=== PATIENT | male | born 1990 | race Caucasian/White ===

== ENCOUNTER 2017-08-11 12:35 | Emergency (ER) ==
[2017-08-11 12:46] VITALS: BP 118/75; TEMP 98.1; BMI 22.3
[2017-08-11] MEDS ORDERED: ROCEPHIN 2 GM in SODIUM CHLORIDE 50 ML IV STA (12:51)
--- NOTE | 2017-08-11 13:19 | CT ---
EXAM: CT head without contrast HISTORY: Headache with neck stiffness COMPARISON: None. TECHNIQUE: Helical axial CT of the head was performed without contrast. Coronal and sagittal reconstr uctions were performed. FINDINGS: There is no acute intracranial abnormality. There is no hemorrhage, mass, midline shift, abnormal ex tra-axial fluid collection, hydrocephalus or evolving ischemia. The ernandez-white matter junction is wel l maintained. Brain parenchyma, ventricles and sulci are normal. There are no acute calvarial lesions. Visualized orbits and globes are unremarkable. The mastoid ai r cells demonstrate no significant soft tissue opacification. There is extensive paranasal sinus memb florina thickening in the ethmoid air cells and the maxillary sinuses with air-fluid levels. IMPRESSION: 1. Negative intracranially. 2. Acute sinusitis.
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
--- NOTE | 2017-08-11 14:57 | ED.PDOC ---
Procedures - Lumbar Puncture Position of Patient: Lateral Decubitis Local Anesthetic Used: Yes (1% lidocaine 5ml used) Gauge of Spinal needle: 22 ga Lumbar Space Used for Insertion: L4-5 Number of Attempts: 2 Spinal Fluid Obtained: Yes Fluid Description: Present: Clear Opening Pressure (mm/H2O): 17 Conscious Sedation - Pre-op Assessment Weight: 160 lb Surgical History: none - Medical History Past Medical History: None - Physical Exam Heart Rate/Rhythm: Regular Rhythm
[2017-08-11] MEDS: LIDOCAINE HCL 1% SDV ONE (15:43)
[2017-08-11] MEDS: ROCEPHIN 2 GM in SODIUM CHLORIDE 50 ML IV STA (15:44)
[2017-08-11] MEDS: SOLU-MEDROL 125 MG IVP STA (15:45)
[2017-08-11] MEDS: VERSED ONE (15:45)
[2017-08-11] MEDS: ROCEPHIN ONE ×2 (15:46)
[2017-08-11] MEDS: ATIVAN IVP STA ×2 (19:41→22:14)
[2017-08-11] MEDS ORDERED: GEODON IM STA ×2 (21:04→22:10)
[2017-08-11] MEDS: GEODON IM STA (22:25)
--- NOTE | 2017-08-12 02:55 | DI ---
EXAM: Chest, one-view HISTORY: Chest Pain FINDINGS: Cardiac and mediastinal contours are normal. Pulmonary vasculature is normal. Lungs are clear. Bony thorax is unremarkable. IMPRESSION: Within normal limits
[2017-08-12] MEDS: VERSED IVP STA (09:42)
== END 2017-08-12 11:33 | disposition home or self-care (01) ==
LOC: ED 12:35
DX: F41.9 Anxiety disorder, unspecified (principal); F32.3 Major depressive disorder, single episode, severe with psychotic features; F23 Brief psychotic disorder; M43.6 Torticollis; R51 Headache; R07.9 Chest pain, unspecified; R41.0 Disorientation, unspecified; F19.10 Other psychoactive substance abuse, uncomplicated
CPT/HCPCS: 36415; 62270; 80053; 80306; 80307; 81001; 82550; 82553; 82803; 82945; 83605; 84145; 84157; 84443; 84484; 85025; 87040; 87502; 89051; 93005; 93010; 96360; 96361; 96366; 96375; 96376; 99285

== ENCOUNTER 2017-09-04 05:21 | Emergency (ER) ==
[2017-09-04 05:36] VITALS: BMI 24.4
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
--- NOTE | 2017-09-04 06:35 | CT ---
EXAM: CT scan brain without contrast HISTORY: Altered mental status COMPARISON: CT scan brain 08/11/2017 FINDINGS: Contiguous axial images obtained from the skull base to the convexities without contrast u tilizing 5-mm collimation. Sagittal and coronal reconstructions were imaged and reviewed. The ventr icles and CSF spaces are within normal limits. There are no acute intracranial findings.. The ruthie rium is intact. The visualized paranasal sinuses and mastoid air cells are clear.. Subcutaneous air of indeterminate etiology is seen adjacent the calvarium bilaterally in addition to extensive air s een bilaterally at the base of the neck.. There is also seen anteromedially within the left orbit. IMPRESSION: No acute intracranial findings. Extensive severe diffuse air along the calvarium bilaterally at the base of the neck of indeterminate etiology.
--- NOTE | 2017-09-04 07:28 | DI ---
EXAM: Radiographs, right hand HISTORY: Initial presentation for right hand trauma. COMPARISON: 01/17/2016. TECHNIQUE: Three views. FINDINGS: Bone mineralization is normal. There is no fracture or dislocation. The joint spaces are maintained. Extensive subcutaneous air is present, greatest over the palmar soft tissues at the lev el of the second and third metacarpals. It is difficult to exclude a linear foreign object between t he first and second metacarpals. IMPRESSION: Soft tissue injury as described.
--- NOTE | 2017-09-04 09:36 | CT ---
EXAM: CT right hand without contrast HISTORY: Evaluate for foreign body between second and first metacarpal. COMPARISON: Right hand x-ray 09/04/2017 TECHNIQUE: Serial axial images of the right hand without contrast were performed. There is no lytic or blastic lesion. These were viewed in multiple planes. FINDINGS: There is significant soft tissue gas throughout the right hand. The linear density in the prior x-ray has no visualized foreign body correlation. Musculature and tendinous structures are unr emarkable with edema involving the soft tissues extending to the wrist. The osseous structures demon strate no cortical irregularity or displaced fracture. IMPRESSION: 1. No visualized foreign body. 2. Extensive soft tissue injury and soft tissue gas consistent with recent traumatic injury. 3. No displaced fracture is identified.
[2017-09-04] MEDS ORDERED: GEODON IM STA ×2 (09:45→23:05)
[2017-09-04] MEDS ORDERED: BOOSTRIX IM ONE (09:55)
[2017-09-05] MEDS ORDERED: TYLENOL PO STA (09:52)
[2017-09-05] MEDS ORDERED: LIDOCAINE HCL 1% SDV SUBCUT STA (09:56)
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
[2017-09-05] MEDS ORDERED: ATIVAN PO STA (14:09)
[2017-09-05 14:56] VITALS: BP 124/84; TEMP 97.7
== END 2017-09-05 15:50 | disposition home or self-care (01) ==
LOC: ED 05:21
DX: F69 Unspecified disorder of adult personality and behavior (principal); F41.9 Anxiety disorder, unspecified; R44.3 Hallucinations, unspecified
CPT/HCPCS: 36415; 80053; 80306; 80307; 81001; 84443; 85025; 93005; 93010; 96372; 99284; 99285

== ENCOUNTER 2017-11-08 21:34 | Emergency (ER) ==
[2017-11-08 21:52] VITALS: BP 138/87; TEMP 98.3
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
[2017-11-09 03:04] VITALS: BMI 23.0
== END 2017-11-08 23:00 | disposition left against medical advice (07) ==
LOC: ED 21:34
DX: F20.81 Schizophreniform disorder (principal)
CPT/HCPCS: 36415; 80053; 80306; 80307; 84443; 85025; 93005; 93010; 99283

== ENCOUNTER 2017-11-09 02:52 | Emergency (ER) ==
[2017-11-09 03:04] VITALS: BMI 23.0
--- NOTE | 2017-11-09 03:23 | ED.PDOC ---
General Stated Complaint: was seen last evening but left without instruction with police under there custody. Comes back with complains of hallucinations in correction. Has been in correction for two day. Police not sure he had Meth prior to being correction for missing a court date. Time Seen by Physician: 03:21 Mode of Arrival: Walk-In Information Source: Patient, Police Exam Limitations: No limitations Nursing and Triage Documentation Reviewed and Agree: Yes Reviewed sepsis parameters & appropriate labs ordered?: No System Inflammatory Response Syndrome: Not Applicable System Inflammatory Response Syndrome: Not Applicable ED Provider: Dr. GIRISH PINK Chief Complaint: Psychiatric Complaint Sepsis Protocol: For patient's 13 years and over: Temp is 96.8 and below OR 101 and greater Pulse >90 BPM Resp >20/minute Acutely Altered Mental Status Are patient's symptoms suggestive of a new infection, such as: -Pneumonia -Skin, Soft Tissue -Endocarditis -UTI -Bone, Joint Infection -Implantable Device -Acute Abdominal Infection -Wound Infection -Meningitis -Blood Stream Catheter Infection -Unknown Psychological Complaint Exam - Psychiatric Complaint/Exam Patient Complains Of: Present: Other (Hallucinations. ) Onset/Duration: 1 day Symptoms Are: Still present Timing: Intermittent Initial Severity: Moderate Current Severity: Severe Character: Present: Anxious, Frustrated Aggravating: Reports: Drug use (possible ) Associated Signs And Symptoms: Reports: Confused, Hallucinating, Paranoid behavior, Sleep disturbance Related History: Reports: Recent stressors. Denies: Suicidal thoughts, Suicidal plan, Suicidal gestures, Homicidal thoughts, Prior attempts Completed Suicide Risk Factors: None Patient Accompanied By: Police Patient In Custody Of Police: Yes Social Withdrawal Present: Yes Social Isolation Present: Yes Prior Suicide Attempt: No Injury From Prior Suicide Attempt: No Related Surgical History: Reports: None Patient Uncooperative For Exam: Yes Mood: Present: Paranoid, Hallucinating Appearance: Present: Unkempt Thought Process: Present: Illogical, Flight of ideas Insight: Present: Poor Memory: Impaired Judgement: Impaired Danger To Others: Yes Patient Medically Stable For: Psych evaluation, Referral, Transfer Differential Diagnoses: Bipolar Disorder, Schizophrenia Review of Systems - Review Of Systems Constitutional: Reports: No symptoms, Other Eyes: Reports: No symptoms Ears, Nose, Mouth, Throat: Reports: No symptoms Respiratory: Reports: No symptoms Cardiac: Reports: No symptoms GI: Reports: No symptoms : Reports: No symptoms Musculoskeletal: Reports: No symptoms Skin: Reports: No symptoms Neurological: Reports: Anxiety, Depressed, Emotional problems, Other (paranoia) Endocrine: Reports: No symptoms Hematologic/Lymphatic: Reports: No symptoms All Other Systems: Reviewed and Negative Past Medical History - Past Medical History Previously Healthy: Yes Endocrine: Reports: None Cardiovascular: Reports: None Respiratory: Reports: None Hematological: Reports: None Gastrointestinal: Reports: None Genitourinary: Reports: None Neuro/Psych: Reports: Anxiety, Depression, Schizophrenia Musculoskeletal: Reports: None Cancer: Reports: None - Surgical History General Surgical History: Reports: None - Family History Family History: Reports: None - Social History Smoking Status: Former smoker Hx Substance Use: No Alcohol Screening: Occasionally - Immunizations Tetanus Shot up to Date: No (unknown) Physical Exam - Physical Exam Appearance: Ill-appearing ENT: Ears normal, Nose normal, Oropharynx normal Respiratory: Airway patent, Breath sounds clear, Breath sounds equal, Respirations nonlabored Cardiovascular: RRR, Pulses normal, No rub, No murmur, Tachycardia GI/: Soft, Nontender, No masses, Bowel sounds normal, No Organomegaly Musculoskeletal: Normal strength, ROM intact, No edema, No calf tenderness Skin: Warm, Dry, Normal color Psychiatric: Anxious, Depressed Physician Notification - Case Discussed Endorsed To/Discussed With: Osmel Time of Discussion: 07:00 Critical Care Note - Critical Care Note Total Time (mins): 0 - Course Orders, Labs, Meds: Lab Review 11/09/17 11/09/17 11/09/17 04:05 04:15 09:09 Lactic Acid 5.3 Urine Color Yellow Urine Clarity Clear Urine pH 5.5 Ur Specific [place] 1.025 Urine Protein 2+ Urine Glucose (UA) Negative Urine Ketones 2+ Urine Blood Negative Urine Nitrite Negative Urine Bilirubin 1+ Urine Urobilinogen 0.2 Ur Leukocyte Esterase Negative Urine Microscopic RBC 0-2 Urine Microscopic WBC 2-5 Ur Squamous Epith Cells 2-5 Urine Bacteria Trace Hyaline Casts 2-5 Urine Mucus 2+ Urine Opiates Screen Negative Ur Oxycodone Screen Negative Urine Methadone Screen Negative Ur Propoxyphene Screen Negative Ur Barbiturates Screen Negative U Tricyclic Antidepress Negative Ur Phencyclidine Scrn Negative Ur Amphetamine Screen Positive U Methamphetamines Scrn Positive U Benzodiazepines Scrn Positive Urine Cocaine Screen Negative U Cannabinoids Screen Positive Orders Category Date Time Status DRUG SCREEN, URINE, RAPID Stat LAB 11/09/17 04:05 Completed LACTIC ACID Stat LAB 11/09/17 09:09 Completed UA [URINALYSIS C & S IF INDICATED] Stat LAB 11/09/17 04:15 Completed Lorazepam [Ativan] MEDS 11/09/17 05:26 Discontinued 1 mg IM ONCE STA Ziprasidone Mesylate [Geodon] MEDS 11/09/17 05:32 Discontinued 20 mg IM ONCE STA Medications Discontinued Medications Generic Name Dose Route Start Last Admin Trade Name Hermelindo SUBRAMANIANN Reason Stop Dose Admin Lorazepam 1 mg 11/09/17 05:26 11/09/17 05:51 Ativan IM 11/09/17 05:27 1 mg ONCE STA Administration Ziprasidone 20 mg 11/09/17 05:32 11/09/17 05:52 Geodon IM 11/09/17 05:33 20 mg ONCE STA Administration Vital Signs: Temp Pulse Resp BP Pulse Ox 11/09/17 08:00 98.4 F 87 16 133/85 97 11/09/17 02:54 98.7 F 138 H 18 125/81 96 Departure - Departure Time of Disposition: 12:25 Pt referred to PMD for follow-up: No IPMP verified?: No - Departure Disposition: TSF TO PSYCH HOSP/UNIT Discharge Problem: Schizophrenia, Drug abuse, antidepressants Condition: Fair Allergies/Adverse Reactions: Allergies No Known Allergies Allergy (Verified 11/08/17 22:38) Home Medications: Ambulatory Orders Buspirone HCl 5 mg PO DAILY 11/08/17 Discharge Problem: Schizophrenia Qualifiers: Schizophrenia type: unspecified Qualified Code(s): F20.9 - Schizophrenia, unspecified
[2017-11-09] MEDS ORDERED: GEODON IM STA ×2 (05:26→05:32)
[2017-11-09] MEDS ORDERED: ATIVAN IM STA (05:26)
[2017-11-09 08:17] VITALS: BP 133/85; TEMP 98.4
== END 2017-11-09 12:13 ==
LOC: ED 02:52
DX: F20.9 Schizophrenia, unspecified (principal); F19.10 Other psychoactive substance abuse, uncomplicated
CPT/HCPCS: 36415; 80306; 81001; 83605; 96372; 99285